=== PATIENT | female | born 1995 | race Hispanic/Latino ===

== ENCOUNTER 2017-05-15 11:46 | Emergency (ER) | payer OTHER, SELFPAY ==
[2017-05-15] MEDS ORDERED: methylPREDNISolone Sod Succ/PF 125 MG/2 ML VIAL ONE (13:35)
[2017-05-15] MEDS ORDERED: traMADol HCl 50 MG TAB ONE (13:35)
[2017-05-15] MEDS ORDERED: Water For Inject, Bacteriostat 30 ML ONE (13:37)
[2017-05-15 14:09] LABS: Bilirubin Negative (Negative); Blood, Urine Large (Negative); Clarity TURBID (Clear); Glucose, Urine (Dipstick) Negative (Negative); Leukocyte Large (Negative); Nitrite Negative (Negative); Protein, Urine (Dipstick) Trace mg/dL (Neg-Trace); Specific Gravity, Urine 1.029 (1.002-1.036); pH, Urine 6.5 (5.0-9.0)
[2017-05-15 14:15] LABS: Bacteria/HPF 1+ HPF (None Seen); Hyaline Casts/LPF 4-6 HYALINE CAST LPF (0-3 Hyaline); Pathc Cast-AUWi Flag 1.08 (0-2.49)
[2017-05-15 14:27] LABS: Yeast-AUWi Flag 75.7 (0-25.0)
[2017-05-15 14:30] LABS: Trichomonas/HPF 1+ HPF (None Seen); Yeast-All Forms None Seen HPF (None Seen)
== END 2017-05-15 14:55 | disposition home or self-care (01) ==
LOC: ERS 11:46
DX: A59.01 Trichomonal vulvovaginitis (principal); N39.0 Urinary tract infection, site not specified; B20 Human immunodeficiency virus [HIV] disease
CPT/HCPCS: 81003; 81015; 96372; J2930